=== PATIENT | male | born 1980 | race Caucasian/White ===

== ENCOUNTER 2022-11-02 14:58 | Outpatient (CLI) | payer OTHER | END 2022-11-02 14:59 | disposition home or self-care (01) | LOC: SCSRAD 14:58 | PROVIDERS: ATTEND Family Medicine | DX: S67.21XA Crushing injury of right hand, initial encounter (principal); S62.636A Displaced fracture of distal phalanx of right little finger, initial encounter for closed fracture ==

== ENCOUNTER 2022-11-02 16:25 | Emergency (ER) | payer OTHER ==
[2022-11-02] MEDS ORDERED: Boostrix 0.5 ML (Tdap) VIAL (>/=7 yrs of age) ONE (17:25)
[2022-11-02] MEDS ORDERED: Lidocaine 1% PF 5 ML VIAL ONE (17:25)
[2022-11-02] MEDS ORDERED: Ketorolac Tromethamine 30 MG/ML VIAL ONE (17:29)
[2022-11-02] MEDS ORDERED: Bupivacaine 0.25% 10 ML VIAL ONE ×2 (17:47→17:54)
[2022-11-02] MEDS ORDERED: Amoxicillin/Potassium Clav 875 MG TAB ONE (17:50)
[2022-11-02] MEDS ORDERED: Bacitracin 1 PK ONE (19:19)
== END 2022-11-02 19:51 | disposition home or self-care (01) ==
LOC: ERS 16:25
DX: S62.636B Displaced fracture of distal phalanx of right little finger, initial encounter for open fracture (principal); W23.1XXA Caught, crushed, jammed, or pinched between stationary objects, initial encounter; Z23 Encounter for immunization
CPT/HCPCS: 11760; 90471; 90715; 96372; J1885; S0020